=== PATIENT | female | born 1960 | race African-American/Black ===

== ENCOUNTER 2022-06-12 06:00 | Observation (INO) | payer MEDICARE, BC ==
[2022-06-11 09:14] VITALS: BMI 36.6
[2022-06-12] MEDS ORDERED: Lidocaine 1% MPF 2 ML VIAL ONE (06:33)
[2022-06-12] MEDS ORDERED: Midazolam HCl 2 mg/2 ml Vial ONE (06:43)
[2022-06-12] MEDS ORDERED: Fentanyl 100 MCG/2 ML VIAL ONE ×3 (06:43→10:53)
[2022-06-12] MEDS ORDERED: CEFAZOLIN 2 GM VIAL ONE (06:57)
[2022-06-12] MEDS ORDERED: Sodium Chloride 0.9% 100 ML ONE (06:57)
[2022-06-12] MEDS ORDERED: Bupivacaine HCl 0.5%/Epinephrine 1:200,000/PF 30 ml Vial ONE (07:32)
[2022-06-12] MEDS ORDERED: Ketorolac Tromethamine 30 MG/ML VIAL ONE ×2 (07:32→12:17)
[2022-06-12] MEDS ORDERED: Lidocaine 1% PF 5 ML VIAL ONE (07:32)
[2022-06-12] MEDS ORDERED: PROPOFOL 200 MG/20 ML VIAL ONE (07:32)
[2022-06-12] MEDS ORDERED: Phenylephrine 10 MG/ML VIAL ONE ×2 (07:32→07:54)
[2022-06-12] MEDS ORDERED: Promethazine HCl 25 MG/ML VIAL IM PRN ×2 (08:16→09:15)
[2022-06-12] MEDS ORDERED: Meperidine HCl/PF 25 MG/ML VIAL SLOW IVP PRN (08:16)
[2022-06-12] MEDS ORDERED: PACU-Morphine 4MG/ML VIAL SLOW IVP PRN (08:16)
[2022-06-12] MEDS ORDERED: Promethazine HCl 25 MG/ML VIAL IVPB PRN (08:16)
[2022-06-12] MEDS ORDERED: HYDROcodone/Acetaminophen 5/325 mg Tablet PO PRN (09:15)
[2022-06-12] MEDS ORDERED: Morphine 4 MG/ML VIAL SLOW IVP PRN (09:15)
[2022-06-12] MEDS ORDERED: Morphine 2 MG/ML VIAL SLOW IVP PRN (09:15)
[2022-06-12] MEDS ORDERED: Bisacodyl 10 MG SUPP PR PRN (09:15)
[2022-06-12] MEDS ORDERED: traMADol HCl 50 MG TAB PO PRN (09:15)
[2022-06-12] MEDS ORDERED: TETANUS AND DIPHTHERIA TOX/PF 0.5 ML DISP.SYRIN IM SCH (09:15)
[2022-06-12] MEDS ORDERED: Milk Of Magnesia 30 ML UDCUP PO PRN (09:15)
[2022-06-12] MEDS ORDERED: Acetaminophen 325 MG TAB PO PRN (09:15)
[2022-06-12] MEDS ORDERED: Ondansetron PF 4 MG/2 ML Vial SLOW IVP PRN (09:15)
[2022-06-12] MEDS ORDERED: Fentanyl 100 MCG/2 ML VIAL SLOW IVP PRN (09:15)
[2022-06-12] MEDS ORDERED: Aspirin 81 mg Enteric Coated Tablet PO SCH (10:15)
[2022-06-12] MEDS ORDERED: Aspirin 81 mg Enteric Coated Tablet ONE (12:17)
[2022-06-12] MEDS: Ketorolac Tromethamine 30 MG/ML VIAL IVP SCH ×2 (16:19→17:00)
[2022-06-12] MEDS: Aspirin 81 mg Enteric Coated Tablet PO SCH (21:17)
[2022-06-13] MEDS: Ketorolac Tromethamine 30 MG/ML VIAL IVP SCH ×3 (00:10→11:30)
[2022-06-13] MEDS: Aspirin 81 mg Enteric Coated Tablet PO SCH (08:40)
[2022-06-13 12:22] VITALS: BP 139/82; TEMP 97.8
== END 2022-06-13 13:45 ==
LOC: SDC 06:00 → SURG A 09:15 → EDSTATUS 11:12
PROVIDERS: ADMIT Orthopaedic Surgery; ATTEND Orthopaedic Surgery
PROC: 0PSH04Z Reposition Right Radius with Internal Fixation Device, Open Approach (ICD-10-PCS; principal; 2022-06-12)
PROC: 3E0T3BZ Introduction of Anesthetic Agent into Peripheral Nerves and Plexi, Percutaneous Approach (ICD-10-PCS; 2022-06-12)
DX: S52.531A Colles' fracture of right radius, initial encounter for closed fracture (principal); E78.5 Hyperlipidemia, unspecified; I10 Essential (primary) hypertension; Z85.3 Personal history of malignant neoplasm of breast; Z79.899 Other long term (current) drug therapy; Z88.8 Allergy status to other drugs, medicaments and biological substances; Z98.890 Other specified postprocedural states; W18.30XA Fall on same level, unspecified, initial encounter
CPT/HCPCS: 25607; 64415; 73110; 76000; 93005; 96374; 96376; 97116; C1713 ×3; G0378 ×2; 93010; J0690; J1885; J2250; J2370; J2704; J3010; J3490

== ENCOUNTER 2022-07-06 13:48 | Outpatient (CLI) | payer MEDICARE, BC | END 2022-07-06 13:49 | disposition home or self-care (01) | LOC: BICULT 13:48 | PROVIDERS: ATTEND Physician Assistant | DX: E04.1 Nontoxic single thyroid nodule (principal) | CPT/HCPCS: 76536 ==

== ENCOUNTER 2022-10-18 10:13 | Outpatient (CLI) | payer MEDICARE, BC | END 2022-10-18 10:14 | disposition home or self-care (01) | LOC: BICMAMMO 10:13 | PROVIDERS: ATTEND Internal Medicine Hematology & Oncology | DX: R92.8 Other abnormal and inconclusive findings on diagnostic imaging of breast (principal) | CPT/HCPCS: 77065; G0279 ==

== ENCOUNTER 2022-12-05 14:00 | Outpatient (CLI) | payer MEDICARE, BC | END 2022-12-05 14:01 | disposition home or self-care (01) | LOC: BICMAMMO 14:00 | PROVIDERS: ATTEND Internal Medicine Rheumatology | DX: M81.0 Age-related osteoporosis without current pathological fracture (principal) | CPT/HCPCS: 77080 ==

== ENCOUNTER 2023-05-07 16:13 | Outpatient (CLI) | payer MEDICARE, BC | END 2023-05-07 16:14 | disposition home or self-care (01) | LOC: BICRAD 16:13 | PROVIDERS: ATTEND Internal Medicine Rheumatology | DX: M25.552 Pain in left hip (principal) ==

== ENCOUNTER 2024-01-01 11:14 | Outpatient (CLI) | payer MEDICARE, BC | END 2024-01-01 11:15 | disposition home or self-care (01) | LOC: BICRAD 11:14 | PROVIDERS: ATTEND Physician Assistant | DX: M25.571 Pain in right ankle and joints of right foot (principal) ==

== ENCOUNTER 2024-05-05 09:56 | Outpatient (CLI) | payer MEDICARE | END 2024-05-05 09:57 | disposition home or self-care (01) | LOC: BICMAMMO 09:56 | PROVIDERS: ATTEND Family Medicine | DX: Z12.31 Encounter for screening mammogram for malignant neoplasm of breast (principal); Z13.820 Encounter for screening for osteoporosis; E04.1 Nontoxic single thyroid nodule; Z78.0 Asymptomatic menopausal state; Z80.3 Family history of malignant neoplasm of breast; Z85.3 Personal history of malignant neoplasm of breast; Z90.12 Acquired absence of left breast and nipple; Z98.890 Other specified postprocedural states | CPT/HCPCS: 76536; 77063; 77067; 77080 ==